=== PATIENT | male | born 1975 | race Caucasian/White ===

== ENCOUNTER 2017-02-24 20:45 | Inpatient (IN) | payer SELFPAY ==
[~2017-02-24] VITALS: Ht 167.6 cm; Wt 72.6 kg
[2017-02-24] MEDS ORDERED: IOHEXOL 300 MG/ML 75 ML VIAL IV ONE (22:00)
[2017-02-24] MEDS ORDERED: CONTRAST GIVEN MC PRN (22:15)
--- NOTE | 2017-02-24 22:15 | PHYS DOC ---
Past Medical History Past Medical History: Diabetes-Type II Past Surgical History: No Surgical History Alcohol Use: None Drug Use: None Adult General Chief Complaint Chief Complaint: CONSTIPATION HPI HPI Patient is a 41 year old M who presents with right lower quadrant abdominal pain for the past 4 days. Patient has nausea but denies vomiting/diarrhea. Patient states he is addicted fevers off-and-on for the past 4 days. Patient has had no previous abdominal surgeries. Patient denies any chest pain or shortness of breath. Patient has no other complaints. Patient states he is meant unable to eat over the past couple days. Pertinent exam findings: Abdomen was soft with tenderness to palpation over the right lower quadrant with positive rebound tenderness ED course: Patient was seen and examined a CBC, CMP, lipase, UA, CT scan abdomen and pelvis were ordered. She received 50 g of fentanyl IV along with a 1 L normal saline bolus 2249: Updated the patient on lab results who states that his blood sugars usually run around 500 however stopped drinking heavily 6 years ago and explained the patient will be admitted to the hospital, another 1 L bolus was ordered 0005: Discussed CC/HP/PMH with Dr. Argueta and recommends admit and recommends if the blood sugar is not coming down and she would like him placed in ICU on insulin drip however the blood sugars coming down he got to telemetry Pertinent results: Lipase [address] scan of abdomen and pelvis NAD MDM: After reviewing the chart, CC/HPI/PMH, physical exam, [lab results], [ radiological results], the patient has acute pancreatitis with hyperglycemia without signs of DKA therefore the patient needs to be admitted for IV fluids and made nothing by mouth. Patient does not need insulin drip since his repeat blood sugars are coming down. Patient does not need ICU at this time. Review of Systems Review of Systems GEN: Denies fevers, chills, sweats HEENT: Denies blurred vision, sore throat CV: Denies chest pain RESP: Denies shortness of air, cough GI: Right lower quadrant tenderness with nausea NEURO: Denies confusion, dizziness MSK: Denies weakness, joint pain/swelling Current Medications Current Medications Current Medications Medications (Trade) Dose Ordered Sig/José Antonio Start Time Stop Time Status Last Admin Dose Admin Fentanyl Citrate (Fentanyl 2ml Vial) 50 mcg 1X ONCE 02/24/17 22:30 02/24/17 22:31 DC 02/24/17 22:12 50 MCG Info (Do NOT chart on this entry -- for MONITORING) 1 each PRN DAILY PRN 02/24/17 22:15 02/26/17 22:14 Iohexol (Omnipaque 300 Mg/ml) 75 ml 1X ONCE 02/24/17 22:00 02/24/17 22:01 DC 02/24/17 23:00 75 ML Sodium Chloride 1,000 ml @ 1,000 mls/hr 1X ONCE 02/25/17 00:15 02/25/17 01:14 02/25/17 00:13 1,000 MLS/HR Allergies Allergies Allergies Coded Allergies Type Severity Reaction Last Updated Verified No Known Drug Allergies 02/24/17 No Physical Exam Physical Exam GEN.: No apparent distress. Alert and oriented. HEENT: Head is normocephalic, atraumatic NECK: Supple. LUNGS: CTAB. HEART: RRR, S1, S2 present. Peripheral pulses intact ABDOMEN: Soft, tenderness to palpation over the right lower quadrant with positive rebound tenderness. Positive bowel sounds. EXTREMITIES: Without any cyanosis. NEUROLOGIC: Normal speech, normal tone PSYCHIATRIC: Normal affect, normal mood. SKIN: No ulcerations Current Patient Data Vital Signs Vital Signs Date Time Temp Pulse Resp B/P (MAP) Pulse Ox O2 Delivery O2 Flow Rate FiO2 02/24/17 23:12 81 18 105/61 (76) 98 Room Air 02/24/17 20:59 98.2 98.2 Lab Values Laboratory Tests Test 02/24/17 19:45 02/24/17 22:00 02/25/17 00:07 Urine Collection Type Unknown Urine Color Yellow Urine Clarity Clear Urine pH 6.5 Urine Specific [place] >=1.030 Urine Protein Negative mg/dL (NEG-TRACE) Urine Glucose (UA) >=1000 mg/dL (NEG) Urine Ketones (Stick) Trace mg/dL (NEG) Urine Blood Negative (NEG) Urine Nitrite Negative (NEG) Urine Bilirubin Negative (NEG) Urine Urobilinogen Dipstick 0.2 mg/dL (0.2 mg/dL) Urine Leukocyte Esterase Negative (NEG) Urine RBC Occ /HPF (0-2) Urine WBC Occ /HPF (0-4) Urine Squamous Epithelial Cells Occ /LPF Urine Bacteria 0 /HPF (0-FEW) White Blood Count 14.2 x10^3/uL (4.0-11.0) H Red Blood Count 5.50 x10^6/uL (4.30-5.70) Hemoglobin 15.4 g/dL (13.0-17.5) Hematocrit 45.4 % (39.0-53.0) Mean Corpuscular Volume 83 fL (79-100) Mean Corpuscular Hemoglobin 28 pg (25-35) Mean Corpuscular Hemoglobin Concent 34 g/dL (31-37) Red Cell Distribution Width 13.0 % (11.5-14.5) Platelet Count 264 x10^3/uL (140-400) Neutrophils (%) (Auto) 73 % (31-73) Lymphocytes (%) (Auto) 18 % (24-48) L Monocytes (%) (Auto) 7 % (0-9) Eosinophils (%) (Auto) 1 % (0-3) Basophils (%) (Auto) 0 % (0-3) Neutrophils # (Auto) 10.4 x10^3uL (1.8-7.7) H Lymphocytes # (Auto) 2.6 x10^3/uL (1.0-4.8) Monocytes # (Auto) 1.0 x10^3/uL (0.0-1.1) Eosinophils # (Auto) 0.1 x10^3/uL (0.0-0.7) Basophils # (Auto) 0.1 x10^3/uL (0.0-0.2) Sodium Level 129 mmol/L (136-145) L Potassium Level 3.8 mmol/L (3.5-5.1) Chloride Level 94 mmol/L (98-107) L Carbon Dioxide Level 30 mmol/L (21-32) Anion Gap 5 (6-14) L Blood Urea Nitrogen 16 mg/dL (8-26) Creatinine 1.1 mg/dL (0.7-1.3) Estimated GFR (Cockcroft-Gault) 74.5 BUN/Creatinine Ratio 15 (6-20) Glucose Level 527 mg/dL (70-99) *H Calcium Level 9.3 mg/dL (8.5-10.1) Total Bilirubin 0.4 mg/dL (0.2-1.0) Aspartate Amino Transferase (AST) 11 U/L (15-37) L Alanine Aminotransferase (ALT) 24 U/L (16-63) Alkaline Phosphatase 197 U/L (46-116) H Total Protein 8.0 g/dL (6.4-8.2) Albumin 3.6 g/dL (3.4-5.0) Albumin/Globulin Ratio 0.8 (1.0-1.7) L Lipase 1214 U/L (73-393) H Glucose (Fingerstick) 357 mg/dL (70-99) H Laboratory Tests 02/24/17 22:00 Laboratory Tests 02/24/17 22:00 EKG EKG [] Radiology/Procedures Radiology/Procedures CT abdomen and pelvis with contrast Impression abdomen and pelvis : 1. No acute intra-abdominal or pelvic process is detected. 2. Extensive scattered stool throughout the colon. [] Course & Med Decision Making Course & Med Decision Making Pertinent Labs and Imaging studies reviewed. (See chart for details) [] Dragon Disclaimer Dragon Disclaimer This electronic medical record was generated, in whole or in part, using a voice recognition dictation system. Departure Departure Impression: Primary Impression: Pancreatitis, acute Additional Impression: Hyperglycemia Disposition: ADMITTED INPATIENT Admitting Physician: Isabel Argueta Condition: STABLE Referrals: NO PCP (PCP) Problem Qualifiers Primary Impression: Pancreatitis, acute Pancreatitis type: idiopathic Acute pancreatitis complication: unspecified Qualified Codes: K85.00 - Idiopathic acute pancreatitis without necrosis or infection SRIDEVI MEJIA DO Feb 24, 2017 22:15
[2017-02-24 22:24] LABS: BASO # 0.1 x10^3/uL (0.0-0.2); BASO % 0 % (0-3); EOS % 1 % (0-3); HEMATOCRIT 45.4 % (39.0-53.0); HEMOGLOBIN 15.4 g/dL (13.0-17.5); LYMPH # 2.6 x10^3/uL (1.0-4.8); LYMPH % 18 % (24-48); MEAN CORPUSCULAR HEMOGLOBIN 28 pg (25-35); MEAN CORPUSCULAR HGB CONC 34 g/dL (31-37); MEAN CORPUSCULAR VOLUME 83 fL (79-100); MONO % 7 % (0-9); NEUT % 73 % (31-73); PLATELET COUNT 264 x10^3/uL (140-400); WHITE BLOOD COUNT 14.2 x10^3/uL (4.0-11.0)
[2017-02-24 22:25] LABS: BILIRUBIN,URINE NEGATIVE (NEG); GLUCOSE,URINE >=1000 mg/dL (NEG); NITRITE,URINE NEGATIVE (NEG); PH,URINE 6.5; PROTEIN,URINE NEGATIVE (NEG-TRACE); UROBILINOGEN,URINE 0.2 mg/dL (0.2 mg/dL)
[2017-02-24 22:28] LABS: BACTERIA,URINE 0 /HPF (0-FEW); RBC,URINE OCC /HPF (0-2); SQUAMOUS EPITHELIAL CELL,UR OCC /LPF; WBC,URINE OCC /HPF (0-4)
[2017-02-24] MEDS ORDERED: IV NORMAL SALINE 1000ML BAG 1,000 ML IV ONE ×2 (22:30→23:00)
[2017-02-24] MEDS ORDERED: fentaNYL PF VIAL 100 MCG/2 ML VIAL IV ONE (22:30)
[2017-02-24 22:39] LABS: ALBUMIN 3.6 g/dL (3.4-5.0); ALBUMIN/GLOBULIN RATIO 0.8 (1.0-1.7); CALCIUM 9.3 mg/dL (8.5-10.1); CREATININE 1.1 mg/dL (0.7-1.3); GFR 74.5; POTASSIUM 3.8 mmol/L (3.5-5.1); TOTAL BILIRUBIN 0.4 mg/dL (0.2-1.0)
--- NOTE | 2017-02-24 23:20 | RAD ---
Exam performed: CT scan of the abdomen and pelvis with contrast Clinical Indication: Constipation and diffuse abdominal pain for 5 days Date of Service: 02/24/2017. COMPARISON: None available Technique: Contiguous helical acquisitions are obtained from the lung bases to the pelvis during intravenous administration of [75 mL of Omnipaque 300]. Sagittal and coronal reformatted images were obtained and reviewed. CT abdomen findings: The lung bases appear essentially clear. Visualized heart is normal. The liver, spleen ,gall bladder and pancreas appears unremarkable. Both adrenal glands and bilateral kidneys appear normal with symmetric excretion of contrast via both kidneys. The small bowel loops appear nondilated and unremarkable. There is no retroperitoneal lymphadenopathy or mass lesions. Extensive stool seen in the colon. Appendix is normally seen. No obvious stranding is seen in the pericecal region. CT pelvis findings: The pelvic bowel loops are nondilated and unremarkable. The urinary bladder is well distended and normal . Prostate gland, seminal vesicles and rectum appear normal. Interrogation of bone windows demonstrates no obvious bony abnormality. Sagittal and coronal reformatted images were obtained and reviewed which demonstrate no additional findings. Impression abdomen and pelvis : 1. No acute intra-abdominal or pelvic process is detected. 2. Extensive scattered stool throughout the colon. PQRS Compliance Statement: One or more of the following individualized dose reduction techniques were utilized for this examination: 1. Automated exposure control 2. Adjustment of the mA and/or kV according to patient size 3. Use of iterative reconstruction technique Electronically signed by: Susan Crenshaw MD (02/24/2017 11:16 PM)
[2017-02-25] VITALS (7 sets, daily range): BP systolic 117–138; BP diastolic 72–85
[2017-02-25] MEDS ORDERED: IV NORMAL SALINE 1000ML BAG 1,000 ML IV ONE (00:15)
[2017-02-25] MEDS ORDERED: MORPHINE SULFATE 4 MG/ML DISP.SYRIN. IV PRN (00:30)
[2017-02-25] MEDS ORDERED: fentaNYL PF VIAL 100 MCG/2 ML VIAL IV ONE (00:30)
[2017-02-25] MEDS ORDERED: ACETAMINOPHEN 325 MG TABLET. PO PRN (00:30)
--- NOTE | 2017-02-25 00:58 | ACF ---
Admission Forms Criteria PANCREATITIS Clinical Indications for Admission to Inpatient Care (Place 'X' for any and all applicable criteria): Admission is indicated for 1 or more of the following (1)(2)(3)(4): [X]I. Acute pancreatitis[A] as indicated by 2 or MORE of the following: [ ]a) Abdominal pain (eg, epigastric, left upper quadrant) [X]b) Serum amylase or serum lipase greater than 3 times the upper limit of normal [ ]c) Characteristic findings from abdominal imaging (eg, pancreatic inflammation, pancreatic necrosis, peripancreatic fluid collection)[B] [ ]II. Pancreatitis (acute or chronic ) requiring inpatient care as indicated by 1 or more of the following [ ]a) Inability to maintain oral hydration Hypoxemia [ ]b) Evidence of infection (eg, fever, peripancreatic abscess) [ ]c) Severe pain requiring acute inpatient management [ ]d) Hemodynamic instability [ ]e) Hypoxemia [ ]f) Acute renal failure [ ]g) Severe electrolyte abnormalities Extended stay beyond goal length of stay may be needed for (1)(11) [ ]a) Severe acute pancreatitis (10)(19) [ ]b) Persistent symptoms, ascites, or pleural effusion [ ]c) Abdominal compartment syndrome (10) [ ]d) Late complications [ ]e) Gallstones in gallbladder [ ]f) Acute renal failure (27) The original [employer] content created by [employer] has been revised. The portions of the content which have been revised are identified through the use of italic text or in bold,and [facility] has neither reviewed nor approved the modified material.All other unmodified content is copyright [facility]. Please see references footnoted in the original [facility] edition 2016 Admission Criteria Met?: Yes TERESO ENGLISH Feb 25, 2017 00:58
[2017-02-25] MEDS: IV NORMAL SALINE 1000ML BAG 1,000 ML IV SCH ×3 (02:00→16:30)
--- NOTE | 2017-02-25 07:28 | ACF ---
Admission Forms Criteria PANCREATITIS Clinical Indications for Admission to Inpatient Care (Place 'X' for any and all applicable criteria): Admission is indicated for 1 or more of the following (1)(2)(3)(4): [X]I. Acute pancreatitis[A] as indicated by 2 or MORE of the following: [X]a) Abdominal pain (eg, epigastric, left upper quadrant) [X]b) Serum amylase or serum lipase greater than 3 times the upper limit of normal [ ]c) Characteristic findings from abdominal imaging (eg, pancreatic inflammation, pancreatic necrosis, peripancreatic fluid collection)[B] [ ]II. Pancreatitis (acute or chronic ) requiring inpatient care as indicated by 1 or more of the following [ ]a) Inability to maintain oral hydration Hypoxemia [ ]b) Evidence of infection (eg, fever, peripancreatic abscess) [ ]c) Severe pain requiring acute inpatient management [ ]d) Hemodynamic instability [ ]e) Hypoxemia [ ]f) Acute renal failure [ ]g) Severe electrolyte abnormalities Extended stay beyond goal length of stay may be needed for (1)(11) [ ]a) Severe acute pancreatitis (10)(19) [ ]b) Persistent symptoms, ascites, or pleural effusion [ ]c) Abdominal compartment syndrome (10) [ ]d) Late complications [ ]e) Gallstones in gallbladder [ ]f) Acute renal failure (27) The original [employer] content created by [employer] has been revised. The portions of the content which have been revised are identified through the use of italic text or in bold,and [facility] has neither reviewed nor approved the modified material.All other unmodified content is copyright [facility]. Please see references footnoted in the original [facility] edition 2016 Admission Criteria Met?: Yes JOSEPH GEORGE Feb 25, 2017 07:28
[2017-02-25] MEDS ORDERED: INSU100V8 SQ (08:41)
[2017-02-25] MEDS ORDERED: METF-620 PO (08:41)
[2017-02-25] MEDS ORDERED: DEXTROSE 50% 25 GM / 50ML DISP.SYRIN. IV PRN (11:15)
--- NOTE | 2017-02-25 11:44 | PDOC2 ---
GI CONSULT Reason For Consult: Pancreatitis HPI: HPI: 41 y/o male admitted through the ER. Reports 5-6 days of severe abdominal pain associated w/ 6-7 days of constipation. Pain began in LUQ and and spread counter-clockwise to lower abdomen. H/o constipation as a child. Tried Gas-X and stool softener yesterday, no help. H/o IDDM (diagnosed 2 years ago), off insulin x 2 months due to finances. Usually works in [employer], currently unemployed/uninsured. No reflux/heartburn/indigestion, n/v, diarrhea, hematochezia, melena. Possible fluctuation in weight. Daily NSAID use for headaches and muscle aches. 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 No previous pancreatitis. Significant labs: WBC 14.2, Na+ 129, glucose 527 (now 319), Alk Phos 197, lipase 1214, UA +glucose +ketones. CT A/P w/ normal pancreas and gallbladder, scattered stool throughout the colon. No pain currently. PMH: PMH: IDDM, heavy alcohol use in the past FH: Family History: Other (mother - pancreatitis) Social History: Smoke: <1 pack per day ALCOHOL: other (heavy drinker in the past, sober 5-6 years) ROS: GEN: Denies fevers, chills, sweats HEENT: Denies blurred vision, sore throat CV: Denies chest pain RESP: Denies shortness of air, cough GI: Per HPI : Denies hematuria, dysuria ENDO: +fluctuating weight NEURO: Denies confusion, dizziness MSK: headache, muscle ache SKIN: Denies jaundice, pruritus Vitals: Vitals: Vital Signs Date Time Temp Pulse Resp B/P (MAP) Pulse Ox O2 Delivery O2 Flow Rate FiO2 02/25/17 10:55 98.3 78 18 123/78 (93) 99 Room Air 98.3 Labs: Labs: Laboratory Tests Test 02/24/17 19:45 02/24/17 22:00 02/25/17 00:07 02/25/17 07:03 Urine Collection Type Unknown Urine Color Yellow Urine Clarity Clear Urine pH 6.5 Urine Specific [place] >=1.030 Urine Protein Negative mg/dL (NEG-TRACE) Urine Glucose (UA) >=1000 mg/dL (NEG) Urine Ketones (Stick) Trace mg/dL (NEG) Urine Blood Negative (NEG) Urine Nitrite Negative (NEG) Urine Bilirubin Negative (NEG) Urine Urobilinogen Dipstick 0.2 mg/dL (0.2 mg/dL) Urine Leukocyte Esterase Negative (NEG) Urine RBC Occ /HPF (0-2) Urine WBC Occ /HPF (0-4) Urine Squamous Epithelial Cells Occ /LPF Urine Bacteria 0 /HPF (0-FEW) White Blood Count 14.2 x10^3/uL (4.0-11.0) Red Blood Count 5.50 x10^6/uL (4.30-5.70) Hemoglobin 15.4 g/dL (13.0-17.5) Hematocrit 45.4 % (39.0-53.0) Mean Corpuscular Volume 83 fL (79-100) Mean Corpuscular Hemoglobin 28 pg (25-35) Mean Corpuscular Hemoglobin Concent 34 g/dL (31-37) Red Cell Distribution Width 13.0 % (11.5-14.5) Platelet Count 264 x10^3/uL (140-400) Neutrophils (%) (Auto) 73 % (31-73) Lymphocytes (%) (Auto) 18 % (24-48) Monocytes (%) (Auto) 7 % (0-9) Eosinophils (%) (Auto) 1 % (0-3) Basophils (%) (Auto) 0 % (0-3) Neutrophils # (Auto) 10.4 x10^3uL (1.8-7.7) Lymphocytes # (Auto) 2.6 x10^3/uL (1.0-4.8) Monocytes # (Auto) 1.0 x10^3/uL (0.0-1.1) Eosinophils # (Auto) 0.1 x10^3/uL (0.0-0.7) Basophils # (Auto) 0.1 x10^3/uL (0.0-0.2) Sodium Level 129 mmol/L (136-145) Potassium Level 3.8 mmol/L (3.5-5.1) Chloride Level 94 mmol/L (98-107) Carbon Dioxide Level 30 mmol/L (21-32) Anion Gap 5 (6-14) Blood Urea Nitrogen 16 mg/dL (8-26) Creatinine 1.1 mg/dL (0.7-1.3) Estimated GFR (Cockcroft-Gault) 74.5 BUN/Creatinine Ratio 15 (6-20) Glucose Level 527 mg/dL (70-99) Calcium Level 9.3 mg/dL (8.5-10.1) Total Bilirubin 0.4 mg/dL (0.2-1.0) Aspartate Amino Transf (AST/SGOT) 11 U/L (15-37) Alanine Aminotransferase (ALT/SGPT) 24 U/L (16-63) Alkaline Phosphatase 197 U/L (46-116) Total Protein 8.0 g/dL (6.4-8.2) Albumin 3.6 g/dL (3.4-5.0) Albumin/Globulin Ratio 0.8 (1.0-1.7) Lipase 1214 U/L (73-393) Glucose (Fingerstick) 357 mg/dL (70-99) 319 mg/dL (70-99) Allergies: Coded Allergies: No Known Drug Allergies (Unverified , 02/24/17) Medications: Current Medications Medications (Trade) Dose Ordered Sig/José Antonio Route PRN Reason Start Time Stop Time Status Last Admin Dose Admin Sodium Chloride 1,000 ml @ 1,000 mls/hr 1X ONCE IV 02/24/17 22:30 02/24/17 23:29 DC 02/24/17 22:11 Fentanyl Citrate (Fentanyl 2ml Vial) 50 mcg 1X ONCE IV 02/24/17 22:30 02/24/17 22:31 DC 02/24/17 22:12 Iohexol (Omnipaque 300 Mg/ml) 75 ml 1X ONCE IV 02/24/17 22:00 02/24/17 22:01 DC 02/24/17 23:00 Sodium Chloride 1,000 ml @ 1,000 mls/hr 1X ONCE IV 02/24/17 23:00 02/24/17 23:59 DC 02/24/17 23:20 Sodium Chloride 1,000 ml @ 1,000 mls/hr 1X ONCE IV 02/25/17 00:15 02/25/17 01:14 DC 02/25/17 00:13 Fentanyl Citrate (Fentanyl 2ml Vial) 100 mcg 1X ONCE IV 02/25/17 00:30 02/25/17 00:31 DC 02/25/17 00:30 Sodium Chloride 1,000 ml @ 125 mls/hr Q8H IV 02/25/17 00:30 02/26/17 00:29 02/25/17 08:30 Imaging: Imaging: CT A/P w/ IV contrast 02/25/17 CT abdomen findings: The lung bases appear essentially clear. Visualized heart is normal. The liver, spleen ,gall bladder and pancreas appears unremarkable. Both adrenal glands and bilateral kidneys appear normal with symmetric excretion of contrast via both kidneys. The small bowel loops appear nondilated and unremarkable. There is no retroperitoneal lymphadenopathy or mass lesions. Extensive stool seen in the colon. Appendix is normally seen. No obvious stranding is seen in the pericecal region. CT pelvis findings: The pelvic bowel loops are nondilated and unremarkable. The urinary bladder is well distended and normal . Prostate gland, seminal vesicles and rectum appear normal. Interrogation of bone windows demonstrates no obvious bony abnormality. Sagittal and coronal reformatted images were obtained and reviewed which demonstrate no additional findings. Impression abdomen and pelvis : 1. No acute intra-abdominal or pelvic process is detected. 2. Extensive scattered stool throughout the colon. PE: GEN: NAD HEENT: Atraumatic, PERRL LUNGS: clear anteriorly HEART: RRR ABD: BS+, mostly RLQ/suprapubic/LLQ discomfort EXTREMITY: No edema SKIN: No rashes, no jaundice NEURO/PSYCH: A & O 3, drowsy A/P: A/P: Abd pain, constipation -bothersome for about 1 week -pain began as upper, moved to lower -tried Gas-X and stool softener at home Hyperglycemia, elevated lipase, leukocytosis -known IDDM, off insulin x 2 months -normal pancreas and gallbladder on CT NSAID use -daily for JAMA, muscle aches H/o heavy alcohol use, now sober pancreatitis -- Will review w/ Dr. Mayberry. Not clearly pancreatitis, although h/o alcohol abuse. Treat hyperglycemia. Try Miralax for constipation. Will add PPI considering NSAID use. CHRISTIAN BERNAL Feb 25, 2017 11:44
[2017-02-25] MEDS: POLYETHYLENE GLYCOL 3350 17 GM PACKET. PO SCH ×2 (12:00→20:29)
[2017-02-25] MEDS: PANTOPRAZOLE 40 MG TABLET.DR. PO SCH (12:08)
[2017-02-25] MEDS: INSULIN ASPART 300 UNITS/3 ML INSULN.PEN SQ SCH ×2 (12:12→17:49)
[2017-02-25] MEDS: ONDANSETRON PF 4 MG/2 ML VIAL. IV PRN ×2 (13:03→20:30)
--- NOTE | 2017-02-25 23:19 | HP ---
ADMIT DATE: 02/25/2017 CHIEF COMPLAINT: Abdominal pain, constipation. HISTORY OF PRESENT ILLNESS: The patient is a pleasant 41-year-old male who presented with right upper quadrant pain and constipation, this has been occurring for 4 days. He tried taking some flft-swl-lwucbsu meds, but that was not working, he had some nausea. While in the ER, he was noted to have pancreatitis. He used to drink, but I think he quit. Basically, we admitted the patient and will be consulting GI. PAST MEDICAL HISTORY: Previous pancreatitis and diabetes. ALLERGIES: None. FAMILY HISTORY: Diabetes. SOCIAL HISTORY: He quit drinking, no smoking or drugs. MEDICATIONS: Reviewed, please refer to the MRAD. REVIEW OF SYSTEMS: GENERAL: No history of weight change, weakness or fevers. SKIN: No bruising, hair changes or rashes. EYES: No blurred, double or loss of vision. NOSE AND THROAT: No history of nosebleeds, hoarseness or sore throat. HEART: No history of palpitations, chest pain or shortness of breath on exertion. LUNGS: Denies cough, hemoptysis, wheezing or shortness of breath. GASTROINTESTINAL: He complains of abdominal pain. GENITOURINARY: No history of frequency, urgency, hesitancy or nocturia. NEUROLOGIC: Denies history of numbness, tingling, tremor or weakness. PSYCHIATRIC: No history of panic, anxiety or depression. ENDOCRINE: No history of heat or cold intolerance, polyuria or polydipsia. EXTREMITIES: Denies muscle weakness, joint pain, pain on walking or stiffness. PHYSICAL EXAMINATION: VITAL SIGNS: Temperature afebrile, pulse is 74, respirations 21, blood pressure 113/60. GENERAL: He is sleeping. He awakens. HEART: Normal S1, S2. LUNGS: Clear. ABDOMEN: Soft. Decreased bowel sounds, tender in the epigastrium. EXTREMITIES: No edema. SKIN: No rashes. ENDOCRINE: No thyromegaly. LYMPHATICS: No cervical nodes. HEMATOPOIETIC: No bruising. PSYCHIATRIC: He seems a little depressed. IMAGING: CT of the abdomen, no acute disease, but he does have a lot of stool. LABORATORY DATA: White count 14, hemoglobin 15, platelets 264. Electrolytes: Sodium 129, potassium 3.8, chloride 94, bicarbonate 30, BUN 16, creatinine 1, glucose 527, now is down to 258 after some insulin, lipase 1214. ASSESSMENT AND PLAN: Symptomatic pancreatitis with incidental finding of some hyperglycemia and leukocytosis. The patient has been admitted. We will start IV antibiotics, IV fluids. He also has hyponatremia so we need to correct his electrolytes. Consult GI. PT, OT. Home meds, n.p.o. NIAL Rachel LOTT DO DR: MARCELLA/sujatha JOB#: [id number] / [id number]
[2017-02-26 03:01] VITALS: BP 130/77
[2017-02-26] MEDS: MORPHINE SULFATE 4 MG/ML DISP.SYRIN. IV PRN ×4 (03:24→21:02)
[2017-02-26] MEDS: ONDANSETRON PF 4 MG/2 ML VIAL. IV PRN ×2 (03:27→10:42)
[2017-02-26 04:03] LABS: BASO % 0 % (0-3); EOS % 1 % (0-3); HEMATOCRIT 41.6 % (39.0-53.0); HEMOGLOBIN 13.9 g/dL (13.0-17.5); LYMPH # 1.4 x10^3/uL (1.0-4.8); LYMPH % 12 % (24-48); MEAN CORPUSCULAR HEMOGLOBIN 28 pg (25-35); MEAN CORPUSCULAR HGB CONC 34 g/dL (31-37); MEAN CORPUSCULAR VOLUME 84 fL (79-100); MONO % 5 % (0-9); NEUT % 82 % (31-73); PLATELET COUNT 213 x10^3/uL (140-400); RED BLOOD COUNT 4.97 x10^6/uL (4.30-5.70); RED CELL DISTRIBUTION WIDTH 13.1 % (11.5-14.5); WHITE BLOOD COUNT 11.4 x10^3/uL (4.0-11.0)
[2017-02-26 04:17] LABS: CALCIUM 8.2 mg/dL (8.5-10.1); CREATININE 0.7 mg/dL (0.7-1.3); GFR 125.5; POTASSIUM 3.9 mmol/L (3.5-5.1)
[2017-02-26 07:00] VITALS: BP 121/73
[2017-02-26] MEDS: POLYETHYLENE GLYCOL 3350 17 GM PACKET. PO SCH ×2 (08:05→20:00)
[2017-02-26] MEDS: PANTOPRAZOLE 40 MG TABLET.DR. PO SCH (08:05)
[2017-02-26] MEDS: INSULIN ASPART 300 UNITS/3 ML INSULN.PEN SQ SCH ×3 (08:13→17:19)
[2017-02-26 11:00] VITALS: BP 133/88
--- NOTE | 2017-02-26 13:21 | PDOC ---
Subjective: Subjective: Feels better currently w/ less pain. Tolerating clears. No BM. Objective: Objective: D/w RN - asking for pain meds today. No BM yet - has had Miralax x 3 doses. Vital Signs: Vital Signs Date Time Temp Pulse Resp B/P (MAP) Pulse Ox O2 Delivery O2 Flow Rate FiO2 02/26/17 11:11 18 98 Room Air 02/26/17 11:00 98.1 64 133/88 (103) 98.1 Labs: Laboratory Tests Test 02/25/17 15:30 02/25/17 16:26 02/25/17 20:57 02/26/17 02:30 Triglycerides Level 146 mg/dL Glucose (Fingerstick) 217 mg/dL 257 mg/dL White Blood Count 11.4 x10^3/uL Red Blood Count 4.97 x10^6/uL Hemoglobin 13.9 g/dL Hematocrit 41.6 % Mean Corpuscular Volume 84 fL Mean Corpuscular Hemoglobin 28 pg Mean Corpuscular Hemoglobin Concent 34 g/dL Red Cell Distribution Width 13.1 % Platelet Count 213 x10^3/uL Neutrophils (%) (Auto) 82 % Lymphocytes (%) (Auto) 12 % Monocytes (%) (Auto) 5 % Eosinophils (%) (Auto) 1 % Basophils (%) (Auto) 0 % Neutrophils # (Auto) 9.3 x10^3uL Lymphocytes # (Auto) 1.4 x10^3/uL Monocytes # (Auto) 0.5 x10^3/uL Eosinophils # (Auto) 0.1 x10^3/uL Basophils # (Auto) 0.0 x10^3/uL Sodium Level 134 mmol/L Potassium Level 3.9 mmol/L Chloride Level 99 mmol/L Carbon Dioxide Level 24 mmol/L Anion Gap 11 Blood Urea Nitrogen 6 mg/dL Creatinine 0.7 mg/dL Estimated GFR (Cockcroft-Gault) 125.5 Glucose Level 250 mg/dL Calcium Level 8.2 mg/dL Lipase 278 U/L Test 02/26/17 07:18 02/26/17 11:42 Glucose (Fingerstick) 219 mg/dL 167 mg/dL PE: GEN: NAD, was asleep LUNGS: clear HEART: RRR ABD: S/ND, suprapubic tenderness NEURO/PSYCH: A & O 3, drowsy A/P: Abd pain, constipation -suprapubic pain today -no BM x 1 week, on Miralax BID here -daily NSAID use at home, on PPI here Hyperglycemia, leukocytosis - improved -IDDM, off insulin and metformin x 2 months Elevated lipase - resolved -normal pancreas and GB on CT, h/o heavy alcohol use in the past -trigs WNL -- ADAT. Continue Miralax and PPI, add Dulcolax and Amitiza. Not clearly pancreatitis, although h/o alcohol abuse. CHRISTIAN BERNAL Feb 26, 2017 13:21
[2017-02-26] MEDS: BISACODYL 5 MG TABLET.DR. PO PRN (14:48)
[2017-02-26 15:00] VITALS: BP 96/59
[2017-02-26] MEDS: LUBIPROSTONE 8 MCG CAPSULE PO SCH (17:16)
[2017-02-26 19:21] VITALS: BP 116/73
[2017-02-26] MEDS: NICOTINE 21MG PATCH. TD SCH (21:03)
--- NOTE | 2017-02-26 22:39 | PDOC ---
PROGRESS NOTES Chief Complaint Chief Complaint Pancreatitis Hyperglycemia Leukocytosis Pain prio h/o ETOH History of Present Illness History of Present Illness Pt seen and examined VSs SOL RN Vitals Vitals Vital Signs Date Time Temp Pulse Resp B/P (MAP) Pulse Ox O2 Delivery O2 Flow Rate FiO2 02/26/17 22:04 Room Air 02/26/17 19:21 97.5 89 18 116/73 (87) 99 97.5 Physical Exam General: Alert, Oriented X3 Heart: Regular rate, Normal S1 Lungs: Clear, Wheezing Abdomen: Normal bowel sounds, Soft Extremities: No clubbing, No cyanosis Skin: No rashes, No breakdown Labs LABS Laboratory Tests Test 02/26/17 02:30 02/26/17 07:18 02/26/17 11:42 02/26/17 16:45 White Blood Count 11.4 x10^3/uL (4.0-11.0) Red Blood Count 4.97 x10^6/uL (4.30-5.70) Hemoglobin 13.9 g/dL (13.0-17.5) Hematocrit 41.6 % (39.0-53.0) Mean Corpuscular Volume 84 fL (79-100) Mean Corpuscular Hemoglobin 28 pg (25-35) Mean Corpuscular Hemoglobin Concent 34 g/dL (31-37) Red Cell Distribution Width 13.1 % (11.5-14.5) Platelet Count 213 x10^3/uL (140-400) Neutrophils (%) (Auto) 82 % (31-73) Lymphocytes (%) (Auto) 12 % (24-48) Monocytes (%) (Auto) 5 % (0-9) Eosinophils (%) (Auto) 1 % (0-3) Basophils (%) (Auto) 0 % (0-3) Neutrophils # (Auto) 9.3 x10^3uL (1.8-7.7) Lymphocytes # (Auto) 1.4 x10^3/uL (1.0-4.8) Monocytes # (Auto) 0.5 x10^3/uL (0.0-1.1) Eosinophils # (Auto) 0.1 x10^3/uL (0.0-0.7) Basophils # (Auto) 0.0 x10^3/uL (0.0-0.2) Sodium Level 134 mmol/L (136-145) Potassium Level 3.9 mmol/L (3.5-5.1) Chloride Level 99 mmol/L (98-107) Carbon Dioxide Level 24 mmol/L (21-32) Anion Gap 11 (6-14) Blood Urea Nitrogen 6 mg/dL (8-26) Creatinine 0.7 mg/dL (0.7-1.3) Estimated GFR (Cockcroft-Gault) 125.5 Glucose Level 250 mg/dL (70-99) Calcium Level 8.2 mg/dL (8.5-10.1) Lipase 278 U/L (73-393) Glucose (Fingerstick) 219 mg/dL (70-99) 167 mg/dL (70-99) 172 mg/dL (70-99) Review of Systems Review of Systems co pain co nausea Assessment and Plan Assessmemt and Plan Problems Medical Problems: (1) Hyperglycemia Status: Acute (2) Pancreatitis, acute Status: Acute Pancreatitis Hyperglycemia Leukocytosis Pain prio h/o ETOH Plan GI consult Daily labs CLD if he can tolerate Home meds Narcotics Problems: Comment Review of Relevant I have reviewed the following items elan (where applicable) has been applied. Labs Laboratory Tests Test 02/25/17 00:07 02/25/17 07:03 02/25/17 11:34 02/25/17 15:30 Glucose (Fingerstick) 357 mg/dL (70-99) 319 mg/dL (70-99) 258 mg/dL (70-99) Triglycerides Level 146 mg/dL (0-150) Test 02/25/17 16:26 02/25/17 20:57 02/26/17 02:30 02/26/17 07:18 Glucose (Fingerstick) 217 mg/dL (70-99) 257 mg/dL (70-99) 219 mg/dL (70-99) White Blood Count 11.4 x10^3/uL (4.0-11.0) Red Blood Count 4.97 x10^6/uL (4.30-5.70) Hemoglobin 13.9 g/dL (13.0-17.5) Hematocrit 41.6 % (39.0-53.0) Mean Corpuscular Volume 84 fL (79-100) Mean Corpuscular Hemoglobin 28 pg (25-35) Mean Corpuscular Hemoglobin Concent 34 g/dL (31-37) Red Cell Distribution Width 13.1 % (11.5-14.5) Platelet Count 213 x10^3/uL (140-400) Neutrophils (%) (Auto) 82 % (31-73) Lymphocytes (%) (Auto) 12 % (24-48) Monocytes (%) (Auto) 5 % (0-9) Eosinophils (%) (Auto) 1 % (0-3) Basophils (%) (Auto) 0 % (0-3) Neutrophils # (Auto) 9.3 x10^3uL (1.8-7.7) Lymphocytes # (Auto) 1.4 x10^3/uL (1.0-4.8) Monocytes # (Auto) 0.5 x10^3/uL (0.0-1.1) Eosinophils # (Auto) 0.1 x10^3/uL (0.0-0.7) Basophils # (Auto) 0.0 x10^3/uL (0.0-0.2) Sodium Level 134 mmol/L (136-145) Potassium Level 3.9 mmol/L (3.5-5.1) Chloride Level 99 mmol/L (98-107) Carbon Dioxide Level 24 mmol/L (21-32) Anion Gap 11 (6-14) Blood Urea Nitrogen 6 mg/dL (8-26) Creatinine 0.7 mg/dL (0.7-1.3) Estimated GFR (Cockcroft-Gault) 125.5 Glucose Level 250 mg/dL (70-99) Calcium Level 8.2 mg/dL (8.5-10.1) Lipase 278 U/L (73-393) Test 02/26/17 11:42 02/26/17 16:45 Glucose (Fingerstick) 167 mg/dL (70-99) 172 mg/dL (70-99) Laboratory Tests Test 02/26/17 02:30 02/26/17 07:18 02/26/17 11:42 02/26/17 16:45 White Blood Count 11.4 x10^3/uL (4.0-11.0) Red Blood Count 4.97 x10^6/uL (4.30-5.70) Hemoglobin 13.9 g/dL (13.0-17.5) Hematocrit 41.6 % (39.0-53.0) Mean Corpuscular Volume 84 fL (79-100) Mean Corpuscular Hemoglobin 28 pg (25-35) Mean Corpuscular Hemoglobin Concent 34 g/dL (31-37) Red Cell Distribution Width 13.1 % (11.5-14.5) Platelet Count 213 x10^3/uL (140-400) Neutrophils (%) (Auto) 82 % (31-73) Lymphocytes (%) (Auto) 12 % (24-48) Monocytes (%) (Auto) 5 % (0-9) Eosinophils (%) (Auto) 1 % (0-3) Basophils (%) (Auto) 0 % (0-3) Neutrophils # (Auto) 9.3 x10^3uL (1.8-7.7) Lymphocytes # (Auto) 1.4 x10^3/uL (1.0-4.8) Monocytes # (Auto) 0.5 x10^3/uL (0.0-1.1) Eosinophils # (Auto) 0.1 x10^3/uL (0.0-0.7) Basophils # (Auto) 0.0 x10^3/uL (0.0-0.2) Sodium Level 134 mmol/L (136-145) Potassium Level 3.9 mmol/L (3.5-5.1) Chloride Level 99 mmol/L (98-107) Carbon Dioxide Level 24 mmol/L (21-32) Anion Gap 11 (6-14) Blood Urea Nitrogen 6 mg/dL (8-26) Creatinine 0.7 mg/dL (0.7-1.3) Estimated GFR (Cockcroft-Gault) 125.5 Glucose Level 250 mg/dL (70-99) Calcium Level 8.2 mg/dL (8.5-10.1) Lipase 278 U/L (73-393) Glucose (Fingerstick) 219 mg/dL (70-99) 167 mg/dL (70-99) 172 mg/dL (70-99) Medications Current Medications Sodium Chloride 1,000 ml @ 1,000 mls/hr 1X ONCE IV Last administered on t 22:11; Start 02/24/17 at 22:30; Stop 02/24/17 at 23:29; Status DC Fentanyl Citrate (Fentanyl 2ml Vial) 50 mcg 1X ONCE IV Last administered on 22:12; Start 02/24/17 at 22:30; Stop 02/24/17 at 22:31; Status DC Iohexol (Omnipaque 300 Mg/ml) 75 ml 1X ONCE IV Last administered on 02/24/17 23:00; Start 02/24/17 at 22:00; Stop 02/24/17 at 22:01; Status DC Info (Do NOT chart on this entry -- for MONITORING) 1 each PRN DAILY PRN MC SEE COMMENTS; Start 02/24/17 at 22:15; Stop 02/26/17 at 22:14; Status DC Sodium Chloride 1,000 ml @ 1,000 mls/hr 1X ONCE IV Last administered on 23:20; Start 02/24/17 at 23:00; Stop 02/24/17 at 23:59; Status DC Sodium Chloride 1,000 ml @ 1,000 mls/hr 1X ONCE IV Last administered on 00:13; Start 02/25/17 at 00:15; Stop 02/25/17 at 01:14; Status DC Fentanyl Citrate (Fentanyl 2ml Vial) 100 mcg 1X ONCE IV Last administered on 00:30; Start 02/25/17 at 00:30; Stop 02/25/17 at 00:31; Status DC Ondansetron HCl (Zofran) 4 mg PRN Q8HRS PRN IV NAUSEA/VOMITING Last administered on 02/25/17 20:30; Start 02/25/17 at 00:30; Stop 02/26/17 at 00:29; Status DC Morphine Sulfate 4 mg PRN Q2HR PRN IV PAIN Last administered on 02/25/17 13:04 ; Start 02/25/17 at 00:30; Stop 02/26/17 at 00:29; Status DC Sodium Chloride 1,000 ml @ 125 mls/hr Q8H IV Last administered on 02/25/17 16: 30; Start 02/25/17 at 00:30; Stop 02/26/17 at 00:29; Status DC Acetaminophen (Tylenol) 650 mg PRN Q4HRS PRN PO FEVER; Start 02/25/17 at 00:30; Stop 02/26/17 at 00:29; Status DC Insulin Aspart (NovoLOG) 0-5 UNITS TIDWMEALS SQ Last administered on 02/26/17 17:19; Start 02/25/17 at 12:00 Dextrose (Dextrose 50%-Water Syringe) 12.5 gm PRN Q15MIN PRN IV SEE COMMENTS; Start 02/25/17 at 11:15 Polyethylene Glycol (miraLAX PACKET) 17 gm BID PO Last administered on 20:00; Start 02/25/17 at 12:00 Pantoprazole Sodium (Protonix) 40 mg DAILYAC PO Last administered on 02/26/17 08:05; Start 02/25/17 at 12:00 Ceftriaxone Sodium 1 gm/ Sodium Chloride 50 ml @ 100 mls/hr Q24H IV Last administered on 02/26/17 14:48; Start 02/25/17 at 15:00 Morphine Sulfate 4 mg PRN Q2HR PRN IV SEVERE PAIN Last administered on 21:02; Start 02/26/17 at 03:15 Ondansetron HCl (Zofran) 4 mg PRN Q6HRS PRN IV NAUSEA/VOMITING Last administered on 02/26/17 10:42; Start 02/26/17 at 03:15 Bisacodyl (Dulcolax Tab) 10 mg PRN DAILY PRN PO CONSTIPATION Last administered on 02/26/17 14:48; Start 02/26/17 at 13:15 Lubiprostone (Amitiza) 8 mcg BIDWMEALS PO Last administered on 02/26/17 17:16; Start 02/26/17 at 17:00 Nicotine (Nicoderm Cq 21mg) 1 patch DAILY TD Last administered on 02/26/17 21: 03; Start 02/26/17 at 21:00 Active Scripts Active Reported Lantus (Insulin Glargine,Hum.rec.anlog) 100 Unit/1 Ml Vial 10 Unit SQ QHS Metformin Hcl 1,000 Mg Tablet 1,000 Mg PO BID Vitals/I & O Vital Sign - Last 24 Hours 02/25/17 02/26/17 02/26/17 02/26/17 23:09 03:01 03:24 07:00 Temp 98.5 98.5 98.0 98.5 98.5 98.0 Pulse 78 72 81 Resp 20 20 17 20 B/P (MAP) 120/76 (91) 130/77 (94) 121/73 (89) Pulse Ox 99 99 95 100 O2 Delivery Room Air Room Air Room Air Room Air 02/26/17 02/26/17 02/26/17 02/26/17 08:00 10:41 11:00 15:00 Temp 98.1 98.2 98.1 98.2 Pulse 64 75 Resp 19 18 18 B/P (MAP) 133/88 (103) 96/59 (71) Pulse Ox 100 98 99 O2 Delivery Room Air Room Air Room Air Room Air 02/26/17 02/26/17 02/26/17 02/26/17 17:16 17:46 19:21 20:00 Temp 97.5 97.5 Pulse 89 Resp 20 18 18 B/P (MAP) 116/73 (87) Pulse Ox 99 99 99 O2 Delivery Room Air Room Air Room Air 02/26/17 02/26/17 21:02 22:04 O2 Delivery Room Air Room Air Intake and Output 02/25/17 02/25/17 02/26/17 15:00 23:00 07:00 Intake Total 400 ml 660 ml Balance 400 ml 660 ml MANUEL LOTT III DO Feb 26, 2017 22:39
[2017-02-26 23:22] VITALS: BP 104/60
[2017-02-27 03:11] VITALS: BP 100/59
[2017-02-27 07:00] VITALS: BP 121/77
[2017-02-27] MEDS: NICOTINE 21MG PATCH. TD SCH (07:41)
[2017-02-27] MEDS: PANTOPRAZOLE 40 MG TABLET.DR. PO SCH (07:41)
[2017-02-27] MEDS: LUBIPROSTONE 8 MCG CAPSULE PO SCH ×2 (07:41→17:22)
[2017-02-27] MEDS: POLYETHYLENE GLYCOL 3350 17 GM PACKET. PO SCH ×2 (07:41→19:49)
[2017-02-27] MEDS: INSULIN ASPART 300 UNITS/3 ML INSULN.PEN SQ SCH ×3 (07:47→17:26)
[2017-02-27] MEDS: MORPHINE SULFATE 4 MG/ML DISP.SYRIN. IV PRN ×3 (09:21→20:43)
[2017-02-27] MEDS: ONDANSETRON PF 4 MG/2 ML VIAL. IV PRN ×3 (09:22→20:43)
[2017-02-27 11:00] VITALS: BP 122/73
--- NOTE | 2017-02-27 11:57 | PDOC ---
PROGRESS NOTES Chief Complaint Chief Complaint Narcotic gut, DM and h/o: Pancreatitis Hyperglycemia Leukocytosis Pain prio h/o ETOH History of Present Illness History of Present Illness Pt seen and examined VSs SOL RN Vitals Vitals Vital Signs Date Time Temp Pulse Resp B/P (MAP) Pulse Ox O2 Delivery O2 Flow Rate FiO2 02/27/17 11:00 98.0 87 18 122/73 (89) 99 Room Air 98.0 Physical Exam General: Alert, Oriented X3 Heart: Regular rate, Normal S1 Lungs: Clear, Wheezing Abdomen: Normal bowel sounds, Soft Extremities: No clubbing, No cyanosis Skin: No rashes, No breakdown Labs LABS Laboratory Tests Test 02/26/17 16:45 02/26/17 21:13 02/27/17 07:06 02/27/17 11:46 Glucose (Fingerstick) 172 mg/dL (70-99) 274 mg/dL (70-99) 232 mg/dL (70-99) 459 mg/dL (70-99) Review of Systems Review of Systems co pain co nausea Assessment and Plan Assessmemt and Plan Problems Medical Problems: (1) Hyperglycemia Status: Acute (2) Pancreatitis, acute Status: Acute Narcotic gut, DM and h/o: Pancreatitis Hyperglycemia Leukocytosis Pain prio h/o ETOH Plan Amitiza Encourage po Zofran Recheck labs GI following IV fluids Problems: Comment Review of Relevant I have reviewed the following items elan (where applicable) has been applied. Labs Laboratory Tests Test 02/25/17 15:30 02/25/17 16:26 02/25/17 20:57 02/26/17 02:30 Triglycerides Level 146 mg/dL (0-150) Glucose (Fingerstick) 217 mg/dL (70-99) 257 mg/dL (70-99) White Blood Count 11.4 x10^3/uL (4.0-11.0) Red Blood Count 4.97 x10^6/uL (4.30-5.70) Hemoglobin 13.9 g/dL (13.0-17.5) Hematocrit 41.6 % (39.0-53.0) Mean Corpuscular Volume 84 fL (79-100) Mean Corpuscular Hemoglobin 28 pg (25-35) Mean Corpuscular Hemoglobin Concent 34 g/dL (31-37) Red Cell Distribution Width 13.1 % (11.5-14.5) Platelet Count 213 x10^3/uL (140-400) Neutrophils (%) (Auto) 82 % (31-73) Lymphocytes (%) (Auto) 12 % (24-48) Monocytes (%) (Auto) 5 % (0-9) Eosinophils (%) (Auto) 1 % (0-3) Basophils (%) (Auto) 0 % (0-3) Neutrophils # (Auto) 9.3 x10^3uL (1.8-7.7) Lymphocytes # (Auto) 1.4 x10^3/uL (1.0-4.8) Monocytes # (Auto) 0.5 x10^3/uL (0.0-1.1) Eosinophils # (Auto) 0.1 x10^3/uL (0.0-0.7) Basophils # (Auto) 0.0 x10^3/uL (0.0-0.2) Sodium Level 134 mmol/L (136-145) Potassium Level 3.9 mmol/L (3.5-5.1) Chloride Level 99 mmol/L (98-107) Carbon Dioxide Level 24 mmol/L (21-32) Anion Gap 11 (6-14) Blood Urea Nitrogen 6 mg/dL (8-26) Creatinine 0.7 mg/dL (0.7-1.3) Estimated GFR (Cockcroft-Gault) 125.5 Glucose Level 250 mg/dL (70-99) Calcium Level 8.2 mg/dL (8.5-10.1) Lipase 278 U/L (73-393) Test 02/26/17 07:18 02/26/17 11:42 02/26/17 16:45 02/26/17 21:13 Glucose (Fingerstick) 219 mg/dL (70-99) 167 mg/dL (70-99) 172 mg/dL (70-99) 274 mg/dL (70-99) Test 02/27/17 07:06 02/27/17 11:46 Glucose (Fingerstick) 232 mg/dL (70-99) 459 mg/dL (70-99) Laboratory Tests Test 02/26/17 16:45 02/26/17 21:13 02/27/17 07:06 02/27/17 11:46 Glucose (Fingerstick) 172 mg/dL (70-99) 274 mg/dL (70-99) 232 mg/dL (70-99) 459 mg/dL (70-99) Medications Current Medications Sodium Chloride 1,000 ml @ 1,000 mls/hr 1X ONCE IV Last administered on 22:11; Start 02/24/17 at 22:30; Stop 02/24/17 at 23:29; Status DC Fentanyl Citrate (Fentanyl 2ml Vial) 50 mcg 1X ONCE IV Last administered on 22:12; Start 02/24/17 at 22:30; Stop 02/24/17 at 22:31; Status DC Iohexol (Omnipaque 300 Mg/ml) 75 ml 1X ONCE IV Last administered on 02/24/17 23:00; Start 02/24/17 at 22:00; Stop 02/24/17 at 22:01; Status DC Info (Do NOT chart on this entry -- for MONITORING) 1 each PRN DAILY PRN MC SEE COMMENTS; Start 02/24/17 at 22:15; Stop 02/26/17 at 22:14; Status DC Sodium Chloride 1,000 ml @ 1,000 mls/hr 1X ONCE IV Last administered on 23:20; Start 02/24/17 at 23:00; Stop 02/24/17 at 23:59; Status DC Sodium Chloride 1,000 ml @ 1,000 mls/hr 1X ONCE IV Last administered on 00:13; Start 02/25/17 at 00:15; Stop 02/25/17 at 01:14; Status DC Fentanyl Citrate (Fentanyl 2ml Vial) 100 mcg 1X ONCE IV Last administered on 00:30; Start 02/25/17 at 00:30; Stop 02/25/17 at 00:31; Status DC Ondansetron HCl (Zofran) 4 mg PRN Q8HRS PRN IV NAUSEA/VOMITING Last administered on 02/25/17 20:30; Start 02/25/17 at 00:30; Stop 02/26/17 at 00:29; Status DC Morphine Sulfate 4 mg PRN Q2HR PRN IV PAIN Last administered on 02/25/17 13:04 ; Start 02/25/17 at 00:30; Stop 02/26/17 at 00:29; Status DC Sodium Chloride 1,000 ml @ 125 mls/hr Q8H IV Last administered on 02/25/17 16: 30; Start 02/25/17 at 00:30; Stop 02/26/17 at 00:29; Status DC Acetaminophen (Tylenol) 650 mg PRN Q4HRS PRN PO FEVER; Start 02/25/17 at 00:30; Stop 02/26/17 at 00:29; Status DC Insulin Aspart (NovoLOG) 0-5 UNITS TIDWMEALS SQ Last administered on 02/27/17 07:47; Start 02/25/17 at 12:00 Dextrose (Dextrose 50%-Water Syringe) 12.5 gm PRN Q15MIN PRN IV SEE COMMENTS; Start 02/25/17 at 11:15 Polyethylene Glycol (miraLAX PACKET) 17 gm BID PO Last administered on 07:41; Start 02/25/17 at 12:00 Pantoprazole Sodium (Protonix) 40 mg DAILYAC PO Last administered on 02/27/17 07:41; Start 02/25/17 at 12:00 Ceftriaxone Sodium 1 gm/ Sodium Chloride 50 ml @ 100 mls/hr Q24H IV Last administered on 02/26/17 14:48; Start 02/25/17 at 15:00 Morphine Sulfate 4 mg PRN Q2HR PRN IV SEVERE PAIN Last administered on 09:21; Start 02/26/17 at 03:15 Ondansetron HCl (Zofran) 4 mg PRN Q6HRS PRN IV NAUSEA/VOMITING Last administered on 02/27/17 09:22; Start 02/26/17 at 03:15 Bisacodyl (Dulcolax Tab) 10 mg PRN DAILY PRN PO CONSTIPATION Last administered on 02/26/17 14:48; Start 02/26/17 at 13:15 Lubiprostone (Amitiza) 8 mcg BIDWMEALS PO Last administered on 02/27/17 07:41; Start 02/26/17 at 17:00 Nicotine (Nicoderm Cq 21mg) 1 patch DAILY TD Last administered on 02/27/17 07: 41; Start 02/26/17 at 21:00 Active Scripts Active Reported Lantus (Insulin Glargine,Hum.rec.anlog) 100 Unit/1 Ml Vial 10 Unit SQ QHS Metformin Hcl 1,000 Mg Tablet 1,000 Mg PO BID Vitals/I & O Vital Sign - Last 24 Hours 02/26/17 02/26/17 02/26/17 02/26/17 15:00 17:16 19:21 20:00 Temp 98.2 97.5 98.2 97.5 Pulse 75 89 Resp 18 20 18 B/P (MAP) 96/59 (71) 116/73 (87) Pulse Ox 99 99 99 O2 Delivery Room Air Room Air Room Air Room Air 02/26/17 02/26/17 02/27/17 02/27/17 21:02 23:22 03:11 07:00 Temp 98.4 98.3 97.9 98.4 98.3 97.9 Pulse 85 84 90 Resp 18 18 18 B/P (MAP) 104/60 (75) 100/59 (73) 121/77 (92) Pulse Ox 98 100 100 O2 Delivery Room Air Room Air Room Air Room Air 02/27/17 02/27/17 02/27/17 02/27/17 08:00 09:21 09:51 11:00 Temp 98.0 98.0 Pulse 87 Resp 18 B/P (MAP) 122/73 (89) Pulse Ox 100 99 99 O2 Delivery Room Air Room Air Room Air Room Air Intake and Output 02/26/17 02/26/17 02/27/17 15:00 23:00 07:00 Intake Total 500 ml 0 ml Balance 500 ml 0 ml MANUEL LOTT III DO Feb 27, 2017 11:57
[2017-02-27] MEDS ORDERED: INSULIN ASPART 300 UNITS/3 ML INSULN.PEN SQ ONE (12:15)
--- NOTE | 2017-02-27 13:55 | PDOC ---
Subjective: Subjective: Lower abd pain. "Katarina" stool last night. Objective: Objective: Per RN - stool last night, has asked for enema today. Ate regular diet for lunch quickly, then had abd pain. Vital Signs: Vital Signs Date Time Temp Pulse Resp B/P (MAP) Pulse Ox O2 Delivery O2 Flow Rate FiO2 02/27/17 11:00 98.0 87 18 122/73 (89) 99 Room Air 98.0 Labs: Laboratory Tests Test 02/26/17 16:45 02/26/17 21:13 02/27/17 07:06 02/27/17 11:46 Glucose (Fingerstick) 172 mg/dL 274 mg/dL 232 mg/dL 459 mg/dL PE: GEN: NAD, was asleep LUNGS: CTAB HEART: RRR ABD: BS+, RLQ tenderness NEURO/PSYCH: A & O 3 A/P: Abd pain, constipation -"katarina" stool last night w/ Miralax BID, Dulcolax, and Amitiza -also on PPI -had elevated lipase on admission, resolved (normal pancreas on CT) IDDM, hyperglycemia -- ?suppository/enema - will review w/ Dr. Mayberry Otherwise continue same per GI. CHRISTIAN BERNAL Feb 27, 2017 13:55
[2017-02-27 15:00] VITALS: BP 126/84
[2017-02-27] MEDS: BISACODYL 5 MG TABLET.DR. PO PRN (17:22)
[2017-02-27 19:51] VITALS: BP 112/68
[2017-02-27 23:10] VITALS: BP 109/71
[2017-02-28 02:36] VITALS: BP 125/65
[2017-02-28 07:15] VITALS: BP 96/61
[2017-02-28] MEDS: POLYETHYLENE GLYCOL 3350 17 GM PACKET. PO SCH (07:41)
[2017-02-28] MEDS: LUBIPROSTONE 8 MCG CAPSULE PO SCH (07:41)
[2017-02-28] MEDS: PANTOPRAZOLE 40 MG TABLET.DR. PO SCH (07:41)
[2017-02-28] MEDS: NICOTINE 21MG PATCH. TD SCH ×2 (07:42→07:48)
[2017-02-28] MEDS: INSULIN ASPART 300 UNITS/3 ML INSULN.PEN SQ SCH (07:48)
[2017-02-28] MEDS ORDERED: INSULIN ASPART 300 UNITS/3 ML INSULN.PEN SQ ONE (08:00)
--- NOTE | 2017-03-10 00:16 | DS ---
DATE OF DISCHARGE: 02/28/2017 CHIEF COMPLAINT: Abdominal pain, constipation. HOSPITAL COURSE: The patient is a 41-year-old gentleman who had presented with 5-6 days of severe abdominal pain associated with constipation. He was, therefore, started on aggressive GI bowel regimen. GI consult was obtained and further guidance was provided. His bowel movements actually were reestablished leading to mild diarrhea. An incidental finding of mildly elevated lipase levels, prompted further monitoring there. These, however, resolved by day 2 of his hospitalization. He does have a history of heavy alcohol use in the past, but none present at the time of admission. With resolution of his abdominal pain and reestablish to eat a normal diet, the patient was deemed safe for discharge by 02/28/2017. PHYSICAL EXAMINATION: VITAL SIGNS: Show a blood pressure of 96/61, heart rate of 77, respiratory rate of 16. He is afebrile. GENERAL: This is a 41-year-old well-nourished gentleman, alert and oriented, in no acute distress. LUNGS: Clear. HEART: Regular rate and rhythm. ABDOMEN: Has positive bowel sounds, soft, nontender. EXTREMITIES: Showed no edema. DISCHARGE DIAGNOSES: Constipation and abdominal pain. DISCHARGE DATE: 02/28/2017. DISCHARGE DISPOSITION: To home. DISCHARGE CONDITION: Improved. DISCHARGE MEDICATIONS: Please refer to MAR. DISCHARGE INSTRUCTIONS: The patient is advised to seek a primary care physician QUINTIN. List of physicians was provided. ZULY PULLIAM MD DR: CHICA/nts JOB#: [id number] / [id number]
== END 2017-02-28 09:48 | disposition home or self-care (01) | DRG 439 ==
LOC: ER 20:45 → 6 SOUTH 02-25 00:16
PROVIDERS: ADMIT Internal Medicine; ATTEND Internal Medicine
DX: K85.00 Idiopathic acute pancreatitis without necrosis or infection (principal); E87.1 Hypo-osmolality and hyponatremia; E11.65 Type 2 diabetes mellitus with hyperglycemia; F17.210 Nicotine dependence, cigarettes, uncomplicated; K59.00 Constipation, unspecified; Z79.4 Long term (current) use of insulin; Z83.3 Family history of diabetes mellitus
CPT/HCPCS: 36415; 74177; 80048; 80053; 81001; 82962; 83690; 84478; 85027; 96361; 96374; 96376; J0696; J1815; J2270; J2405; J3010; J7030; Q9967; 99285-25